=== PATIENT | female | born 1980 | race Caucasian/White ===

== ENCOUNTER 2022-02-13 17:05 | Emergency (ER) | payer OTHER ==
[2022-02-13 22:38] LABS: HEMOGLOBIN 13.4 gm/dl (12.3-15.3); RED BLOOD COUNT 4.56 M/UL (4.00-5.10); WHITE BLOOD COUNT 10.5 K/UL (4.5-11.0)
[2022-02-13 22:58] LABS: BUN/CREATININE RATIO 15 (0-10)
[2022-02-14 06:52] LABS: BUN/CREATININE RATIO 12 (0-10)
== END 2022-02-14 08:03 | disposition left against medical advice (07) ==
LOC: ER1 17:05
PROVIDERS: Emergency Medicine
DX: R44.0 Auditory hallucinations (principal); R44.1 Visual hallucinations; S80.819A Abrasion, unspecified lower leg, initial encounter; R10.9 Unspecified abdominal pain; F17.200 Nicotine dependence, unspecified, uncomplicated; Z88.2 Allergy status to sulfonamides; Z88.5 Allergy status to narcotic agent; X58.XXXA Exposure to other specified factors, initial encounter; Z20.822 Contact with and (suspected) exposure to COVID-19
CPT/HCPCS: 71045; 73620; 80048; 80053; 80307; 81001; 83735; 84439; 84443; 84484; 84703; 85025; 93005; 99283; G0480; U0002

== ENCOUNTER 2022-02-14 20:41 | Emergency (ER) | payer OTHER ==
[2022-02-14 22:28] LABS: HEMOGLOBIN 13.9 gm/dl (12.3-15.3); RED BLOOD COUNT 4.73 M/UL (4.00-5.10)
[2022-02-14 22:47] LABS: BUN/CREATININE RATIO 14 (0-10)
== END 2022-02-14 22:58 | disposition left against medical advice (07) ==
LOC: ER1 20:41
PROVIDERS: Physician Assistant
DX: R10.84 Generalized abdominal pain (principal); R10.817 Generalized abdominal tenderness; F17.210 Nicotine dependence, cigarettes, uncomplicated; Z88.5 Allergy status to narcotic agent; Z88.2 Allergy status to sulfonamides
CPT/HCPCS: 80053; 83690; 83735; 85025; 99283